=== PATIENT | female | born 1950 | race Caucasian/White ===

== ENCOUNTER 2025-01-10 09:23 | Emergency (ER) | payer OTHER, SELFPAY ==
--- NOTE | 2025-01-10 09:34 | ED_ITS ---
HPI - Dental/Oral General Chief complaint: Dental/Oral Stated complaint: Dental Pain Time Seen by Provider: 01/10/25 09:26 Source: patient Mode of arrival: ambulatory Limitations: no limitations History of Present Illness HPI Narrative: Sancho de la torre is a 74-year-old female patient presenting to the clinic today with complaints right upper dental pain/swelling. She reports symptoms started yesterday. Has taken Aleve for her symptoms. Rates her pain currently a 09/04. States she has an appointment to see the dentist in February for dentures. Has multiple decayed and broken teeth. No fevers, chills, or body aches. Related Data Home Medications ?Medication ?Instructions ?Recorded ?Confirmed ?Last Taken ?Type atorvastatin 40 mg tablet mg 01/10/25 Unknown History Allergies Allergy/AdvReac Type Severity Reaction Status Date / Time No Known Allergies Allergy Verified 01/10/25 09:27 Review of Systems Review of Systems: Pertinent positives per HPI. Patient denies any fever, chills, rash, headache, visual changes, dizziness, cough, runny nose, sore throat, shortness of breath, chest pain, palpitations, nausea, vomiting, diarrhea, constipation, abdominal pain, or any urinary issues. PMFSH Comments At the time of my signature, I reviewed and agree with the nursing past medical, surgical, social, and family history. There is no relevant family history pertinent to the patient complaint. Exam Narrative: General: Well-developed, well nourished, in no apparent distress Head: Normocephalic, atraumatic Eyes: Pupils equally round and reactive to light bilaterally, EOM intact, sclera and conjunctive clear, no discharge, lids normal Ears: TMs intact and clear, ear canals clear, no drainage, grossly hearing normal. Nose: Nares patent, no discharge, no inflammation, right maxillary sinus tenderness. Mouth: Oropharynx without lesions or masses, multiple decayed/fracture teeth with redness and swelling over the right upper gingival, no palpable abscess, tender to palpation over the right maxillary sinus, MMM. Neck: Supple, trachea midline, no enlargement of anterior or posterior cervical nodes, no thyroid masses or goiter palpable. Cardio: Regular rate and rhythm, s1 and s2 normal, no murmur appreciated. Resp: Clear to auscultation bilaterally anteriorly and posteriorly, no rhonchi, rales, wheezing or rubs Course Course Emergency Course: Portions of this record may have been created with voice recognition software. Level of Care: Express Care Visit Vital Signs Vital signs: Vital signs reviewed MDM - Dental/Oral MDM Narrative Medical decision making narrative: At the time of visit patient is resting comfortably on the exam table. Patient appears to be nontoxic. Complaints right upper dental pain/swelling. She repo rts symptoms started yesterday. Has taken Aleve for her symptoms. Rates her pain currently a /. States she has an appointment to see the dentist in February for dentures. Has multiple decayed and broken teeth. No fevers, chills, or body aches. On exam patient has right maxillary tenderness, right upper jaw-multiple decayed/fractured teeth with redness and swelling over the gingiva Plan: I suspect patient has dental infection/possible developing abscess to the right upper teeth. Prescription for Augmentin was sent to the pharmacy. Recommend follow-up with dentist as soon as possible. Recommend going to the emergency room if symptoms worsen. Supportive measures were discussed with the patient and they voiced understanding discharge instructions and agrees to treatment plan. Return precautions reviewed Differential Diagnosis Differential diagnosis: Likely gingival abscess, dental caries, toothache, dental abscess, fracture of tooth and aphthous ulcer Discharge Plan Discharge Clinical Impression: Infected dental caries Patient Disposition: Home Condition: Stable Instructions: Antibiotic Form, Dental Abscess (ED) Additional Instructions: Take medications as prescribed-Augmentin Increase fluids and stay well hydrated May take Tylenol/Motrin as needed for pain or fever May apply Orajel to the affected area to help alleviate pain May apply warm or cool compress to the affected area to help alleviate pain Follow-up with your dentist as soon as possible Patient Language: Turkmen Prescriptions: New amoxicillin-pot clavulanate 875-125 mg tablet 1 tablet PO Q12H 10 Days Qty: 20 0RF No Action atorvastatin 40 mg tablet Follow-up/Referrals: Nelly,Wilfred Carter MD [Primary Care Provider, Unknown] Time of Disposition: 09:45 Quality NIHSS Nursing Documentation ED NIHSS nursing documentation: reviewed/agree
[2025-01-10 09:35] VITALS: BP 154/87; PULSE 67; RESP 18; TEMP 36.3; O2SAT 99
== END 2025-01-10 09:52 | disposition home or self-care (01) ==
PROVIDERS: Emergency Provider Nurse Practitioner Family; PCP Family Medicine Sports Medicine
DX: K02.9 Dental caries, unspecified (principal)
CPT/HCPCS: 99203; G0463